=== PATIENT | male | born 1975 | race Caucasian/White ===

== ENCOUNTER 2017-07-01 19:07 | Emergency (ER) | payer OTHER ==
[2017-07-01] MEDS: ONDANSETRON 4 MG INJ IV (19:40)
[2017-07-01] MEDS: morphine 2 MG INJ IV (19:41)
[2017-07-01] MEDS: SOD CHLORIDE 0.9% 500 ML IV (19:51)
[2017-07-01 20:16] LABS: ALANINE AMINOTRANSFERASE 78 IU/L (13-69); ALBUMIN 4.2 g/dl (3.3-4.9); ALKALINE PHOSPHATASE 85 IU/L (42-121); ANION GAP 19 (8-16); ASPARTATE AMINO TRANSFERASE 87 IU/L (15-46); BILIRUBIN,INDIRECT 0.3 mg/dl (0-1.1); BILIRUBIN,TOTAL 0.3 mg/dl (0.2-1.3); BLOOD UREA NITROGEN 19 mg/dl (7-20); CALCIUM 9.3 mg/dl (8.4-10.2); CARBON DIOXIDE 22 mmol/L (21-31); CHLORIDE 107 mmol/L (97-110); GLUCOSE 199 mg/dl (70-220); POTASSIUM 4.5 mmol/L (3.5-5.1); SODIUM 143 mmol/L (135-144)
[2017-07-01 20:17] LABS: INR 1.02; PROTIME 13.5 Sec (11.9-14.9); PT RATIO 1.1
[2017-07-01 20:18] LABS: PARTIAL THROMBOPLASTIN TIME 26.3 Sec (25.0-35.0)
[2017-07-01] MEDS: KETOROLAC 30 MG INJ IV (21:25)
[2017-07-02] MEDS: morphine 2 MG INJ IV (00:42)
== END 2017-07-02 01:04 | disposition home or self-care (01) ==
LOC: E/R 07-02 01:04
DX: S92.332A Displaced fracture of third metatarsal bone, left foot, initial encounter for closed fracture (principal); S92.342A Displaced fracture of fourth metatarsal bone, left foot, initial encounter for closed fracture; S23.9XXA Sprain of unspecified parts of thorax, initial encounter; N28.9 Disorder of kidney and ureter, unspecified; M50.20 Other cervical disc displacement, unspecified cervical region; R07.9 Chest pain, unspecified; V49.40XA Driver injured in collision with unspecified motor vehicles in traffic accident, initial encounter
CPT/HCPCS: 71045; 72100; 72125; 72128; 73630-LT; 80048; 80076; 85610; 85730; 96374; 96375; 96376; 99285-25